=== PATIENT | female | born 1995 | race Hispanic/Latino ===

== ENCOUNTER 2020-12-10 14:55 | Emergency (ER) | payer BC ==
[2020-12-10 15:59] LABS: Urine Blood Negative (Negative); Urine Glucose Negative (Negative); Urine Protein Negative (Negative)
[2020-12-10 16:16] LABS: ALT/SGPT 20 U/L (12-78); AST/SGOT 14 U/L (15-37); Albumin 3.7 g/dL (3.4-5.0); Alkaline Phosphatase 72 U/L (45-117); BUN Blood Urea Nitrogen 15 mg/dL (7-18); Bicarbonate 24 mmol/L (21-32); Bilirubin Direct < 0.1 mg/dL (0-0.2); Bilirubin Total 0.2 mg/dL (0.2-1.0); Glucose Level 86 mg/dL (74-106); Lipase 112 U/L (73-393); Potassium 3.5 mmol/L (3.5-5.1); Protein, Total 7.3 g/dL (6.4-8.2); Sodium Level 138 mmol/L (136-145)
[2020-12-10] MEDS ORDERED: DICYCLOMINE HCL 10 MG CAP ONE (16:25)
[2020-12-10 17:41] LABS: Basophils % 0.4 % (0-1.3); Hematocrit 36.8 % (36.0-45.0); Lymphocytes % 36.4 % (15.3-44.8); MPV 8.7 fL (7.6-11.3); RBC Red Blood Cell Count 4.47 M/uL (3.86-4.86)
--- NOTE | 2020-12-10 18:09 | RAD REPORT ---
EXAM DESCRIPTION: CT - Abdomen Pelvis W Contrast - 12/10/2020 5:37 pm CLINICAL HISTORY: Abdominal pain COMPARISON: none. TECHNIQUE: Computed axial tomography of the abdomen pelvis was obtained. 100 cc Isovue-300 was admin istered intravenously. Oral contrast was not requested which limits evaluation of bowel and appendix. All CT scans are performed using dose optimization technique as appropriate and may include automated exposure control or mA/KV adjustment according to patient size. FINDINGS: The liver, spleen, pancreas, adrenal and kidneys appear unremarkable. There is no evidence of diverticulitis. No adnexal mass. Tiny umbilical hernia IMPRESSION: No acute abnormality is displayed.
--- NOTE | 2020-12-10 18:18 | EDPHYS ---
Physician Documentation [facility] Name: Albertina Love Age: 25 yrs Sex: Female : 1995 Arrival Date: 12/10/2020 Time: 14:57 Bed 23 Private MD: ED Physician Aftab Padilla HPI: 12/10 15:18 This 25 yrs old Female presents to ER via Ambulatory with complaints of Pelvic Pain, kb Back Pain, Abdominal Pain. 15:18 The patient presents with abdominal pain in the upper abdomen. Onset: The kb symptoms/episode began/occurred 2 day(s) ago. The symptoms do not radiate. Associated signs and symptoms: Pertinent positives: vomiting. The symptoms are described as constant, crampy. Modifying factors: The symptoms are alleviated by nothing, the symptoms are aggravated by nothing. Severity of pain: At its worst the pain was moderate in the emergency department the pain is unchanged. The patient has not experienced similar symptoms in the past. The patient has not recently seen a physician. Pt reports cough, abd pain, joint pain, sore throat, and bodyaches for 2 days. States she got dizzy on Thursday at a [employer] so someone gave her some fruit to eat, but she is concerned that it may have been contaminated with gluten. . 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 - Social history:: Smoking status: Patient denies any tobacco usage or history of. ROS: 15:20 Cardiovascular: Negative for chest pain, palpitations, and edema. kb 15:20 Constitutional: Positive for body aches, malaise. 15:20 ENT: Positive for sore throat. 15:20 Respiratory: Positive for cough, Negative for dyspnea on exertion, hemoptysis, orthopnea, pleurisy, shortness of breath, sputum production, wheezing. 15:20 Abdomen/GI: Positive for abdominal pain, vomiting, Negative for nausea, diarrhea. 15:20 All other systems are negative. Exam: 15:23 Constitutional: This is a well developed, well nourished patient who is awake, alert, kb and in no acute distress. Head/Face: Normocephalic, atraumatic. ENT: Moist Mucous membranes Respiratory: Respirations even and unlabored. No increased work of breathing, no retractions or nasal flaring. Skin: Warm, dry with normal turgor. Normal color. MS/ Extremity: Pulses equal, no cyanosis. Neurovascular intact. Full, normal range of motion. Neuro: Awake and alert, GCS 15, oriented to person, place, time, and situation. Moves all extremities. Normal gait. Psych: Awake, alert, with orientation to person, place and time. Behavior, mood, and affect are within normal limits. 15:23 Abdomen/GI: Inspection: abdomen appears normal, Bowel sounds: normal, in all quadrants, Palpation: soft, in all quadrants, mild abdominal tenderness, in the right upper quadrant, left upper quadrant and left lower quadrant. Vital Signs: 15:06 BP 125 / 74; Pulse 78; Resp 18 S; Temp 99.5(TE); Pulse Ox 99% on R/A; Weight 87.54 kg aa5 (R); Height 5 ft. 0 in. (152.40 cm) (R); 17:53 BP 128 / 80; Pulse 67; Resp 17; Pulse Ox 100% on R/A; oh 15:06 Body Mass Index 37.69 (87.54 kg, 152.40 cm) aa5 MDM: 15:09 Patient medically screened. kb 15:23 Data reviewed: vital signs, nurses notes. Data interpreted: Pulse oximetry: on room air kb is 99 %. Interpretation: normal. 18:11 Counseling: I had a detailed discussion with the patient and/or guardian regarding: the kb historical points, exam findings, and any diagnostic results supporting the discharge/admit diagnosis, lab results, radiology results, the need for outpatient follow up, a family practitioner, to return to the emergency department if symptoms worsen or persist or if there are any questions or concerns that arise at home. 12/10 15:18 Order name: Basic Metabolic Panel; Complete Time: 16:28 kb 12/10 15:18 Order name: CBC with Diff; Complete Time: 17:43 kb 12/10 15:18 Order name: Hepatic Function; Complete Time: 16:28 kb 12/10 15:18 Order name: Lipase; Complete Time: 16:28 kb 12/10 15:23 Order name: Strep kb 12/10 15:18 Order name: IV Saline Lock; Complete Time: 15:53 kb 12/10 15:18 Order name: Labs collected and sent; Complete Time: 15:53 kb 12/10 15:24 Order name: Group A Streptococcus Rapid Sc; Complete Time: 16:28 EDMS 12/10 15:58 Order name: Urine Dipstick-Ancillary; Complete Time: 16:00 EDMS 12/10 16:11 Order name: SARS-COV-2 RT PCR; Complete Time: 17:13 EDMS 12/10 16:22 Order name: Throat Culture EDOR 12/10 17:13 Order name: CT Abd/Pelvis - IV Contrast Only; Complete Time: 18:11 kb 12/10 15:18 Order name: Urine Dipstick-Ancillary (obtain specimen); Complete Time: 15:58 kb 12/10 15:18 Order name: Urine Test (obtain specimen); Complete Time: 15:58 kb Administered Medications: 16:04 Drug: Bentyl (dicyclomine) 20 mg Route: PO; oh Point of Care Testing: Urine : 15:58 hCG Reading: Negative; oh Disposition: 12/11 08:56 Co-signature as Attending Physician, Aftab Padilla MD I agree with the assessment and kdr plan of care. Disposition Summary: 12/10/20 18:18 Discharge Ordered Location: Home kb Condition: Stable kb Diagnosis - Abdominal pain, Generalized kb Followup: kb - With: Emergency Department - When: As needed - Reason: Worsening of condition Followup: kb - With: Private Physician - When: 2 - 3 days - Reason: Recheck today's complaints, Continuance of care, Re-evaluation by your physician Discharge Instructions: - Discharge Summary Sheet kb - Abdominal Pain, Adult, [id number] kb Forms: - Medication Reconciliation Form kb - Thank You Letter kb - Work release form kb - Antibiotic Education kb - Prescription Opioid Use kb Prescriptions: - dicyclomine 20 mg Oral Tablet - take 1 tablet by ORAL route 4 times per day As needed; 20 tablet; Refills: 0, kb Product Selection Permitted Signatures: Dispatcher [employer] [facility] Dianna Tomlin FNP-C FNP-Ckb Rittger, Kevin, MD MD kdr Calderon, Audri, RN RN aa Berenice Lopez RN RN oh Corrections: (The following items were deleted from the chart) 12/10 16:11 15:18 CORONAVIRUS+BRZ ordered. EDMS EDMS
--- NOTE | 2020-12-10 18:18 | ER ---
Nurse's Notes [facility] Name: Albertina Love Age: 25 yrs Sex: Female : 1995 Arrival Date: 12/10/2020 Time: 14:57 Bed 23 Private MD: Diagnosis: Abdominal pain, Generalized Presentation: 12/10 15:03 Chief complaint: Chief complaint: Patient states: back pain, generalized abd pain x 3 aa5 days ago. Pt also reports sore throat and nausea. 15:06 Coronavirus screen: sore throat. Ebola Screen: Patient negative for fever greater than aa5 or equal to 101.5 degrees Fahrenheit, and additional compatible Ebola Virus Disease symptoms. Initial Sepsis Screen: Does the patient meet any 2 criteria? No. Patient's initial sepsis screen is negative. Does the patient have a suspected source of infection? No. Patient's initial sepsis screen is negative. Risk Assessment: Do you want to hurt yourself or someone else? Patient reports no desire to harm self or others. Onset of symptoms was 2020. 15:06 Method Of Arrival: Ambulatory aa5 15:06 Acuity: MALCOM 3 aa5 Triage Assessment: 17:29 General: Appears uncomfortable, Behavior is cooperative, appropriate for age. 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 - Social history:: Smoking status: Patient denies any tobacco usage or history of. Screenin:28 Abuse screen: Denies threats or abuse. Nutritional screening: No deficits noted. oh Tuberculosis screening: No symptoms or risk factors identified. Fall Risk None identified. Assessment: 16:00 EENT: swollen nodules. oh 17:25 GI: Reports lower abdominal pain. Derm: Rash noted that is red, raised, urticaria, rash oh to bilal cheeks, denies hx of lupus, red rash notice to bilalteral arms. Musculoskeletal: Reports pain in pelvic area. Vital Signs: 15:06 BP 125 / 74; Pulse 78; Resp 18 S; Temp 99.5(TE); Pulse Ox 99% on R/A; Weight 87.54 kg aa5 (R); Height 5 ft. 0 in. (152.40 cm) (R); 17:53 BP 128 / 80; Pulse 67; Resp 17; Pulse Ox 100% on R/A; oh 15:06 Body Mass Index 37.69 (87.54 kg, 152.40 cm) aa5 ED Course: 14:57 Patient arrived in ED. as 15:03 Arm band placed on. aa5 15:08 Triage completed. aa5 15:09 Dianna Tomlin FNP-C [facility]. kb 15:09 Aftab Padilla MD is Attending Physician. kb 15:16 Berenice Lopez, RN is Primary Nurse. oh 15:50 Inserted saline lock: 20 gauge in left antecubital area, using aseptic technique. Blood oh collected. 15:52 Strep Sent. oh 16:59 Throat Culture Sent. oh 17:28 Bed in low position. Call light in reach. oh 17:32 Patient taken to ultrasound. via wheelchair. oh 17:37 CT Abd/Pelvis - IV Contrast Only In Process Unspecified. EDMS 18:53 IV discontinued, bleeding controlled, Pressure dressing applied. oh 18:53 No provider procedures requiring assistance completed. oh Administered Medications: 16:04 Drug: Bentyl (dicyclomine) 20 mg Route: PO; oh Point of Care Testing: Urine : 15:58 hCG Reading: Negative; oh Outcome: 18:18 Discharge ordered by MD. kb 18:53 Patient left the ED. iw 18:53 Discharged to home oh 18:53 Condition: stable 18:53 Discharge instructions given to patient. Signatures: Dispatcher [employer] [facility] Dianna Tomlin FNP-C FNP-Sheila Coffey as Olamide Matthews, RN RN Malina Britton RN RN aa Berenice Lopez, RN RN oh Corrections: (The following items were deleted from the chart) 15:08 15:03 Chief complaint: aa5 aa
[2020-12-10 19:00] VITALS: TEMP 99.5
[2020-12-10 19:02] VITALS: BP 128/80; O2SAT 100
== END 2020-12-10 18:53 | disposition home or self-care (01) ==
LOC: ER 14:55
DX: R10.84 Generalized abdominal pain (principal); Z20.822 Contact with and (suspected) exposure to COVID-19
CPT/HCPCS: 87070; 85025; 80048; 36415; 80076; 87081; 81003; 83690; 74177; 99284; U0003; Q9967

== ENCOUNTER 2023-10-12 16:42 | Emergency (ER) | payer OTHER ==
[2023-10-12 18:45] LABS: Absolute Basophils 0.1 K/uL (0-0.5); Absolute Eosinophils 0.2 K/uL (0-0.5); Absolute Lymphocytes (CBC) 2.6 K/uL (0.7-4.9); Absolute Monocytes 0.4 K/uL (0.1-1.3); Absolute Neutrophil 2.7 K/uL (1.8-8.0); Basophils % 0.9 % (0-1.3); Hematocrit 39.2 % (36.0-45.0); Hemoglobin 13.1 g/dL (12.0-15.0); Lymphocytes % 43.5 % (15.3-44.8); MCH 28.2 pg (27.0-35.0); MCHC 33.5 g/dL (32.0-36.0); MCV 84.1 fL (80-100); MPV 7.9 fL (7.6-11.3); Monocytes % 7.5 % (3.3-12.3); Neutrophils % 45.1 % (41.7-73.7); Nucleated Red Blood Cells % 0.3 % (0-0); Platelets 252 thou/uL (152-406); RBC Red Blood Cell Count 4.66 M/uL (3.86-4.86); Red Cell Distribution Width 13.7 % (12.1-15.2)
[2023-10-12 19:00] LABS: SARS-CoV-2 Antigen CONTROL BLUE LINE VIS/BG OK; SARS-CoV-2 Antigen Rapid Res Positive (Negative)
[2023-10-12 19:03] LABS: Specific Gravity 1.014 (1.005-1.030)
[2023-10-12 19:04] LABS: Specific Gravity 1.014 (1.005-1.030); Sqamous Epithelial <5 /HPF (None Seen); Urine Bacteria None Seen /HPF (<20); Urine Bilirubin NEGATIVE (Negative); Urine Blood 2+ (Negative); Urine Clarity Turbid (Clear); Urine Color Light-Yellow (Yellow); Urine Culture Reflex Order NOT NEEDED; Urine Glucose NEGATIVE (Negative); Urine Ketones NEGATIVE (Negative); Urine Microscopic Reflex YN ORDER UMIC; Urine Mucus Slight /HPF (None Seen); Urine Nitrite NEGATIVE (Negative); Urine Protein NEGATIVE (Negative); Urine RBC <5 /HPF (None Seen); Urine Urobilinogen Normal (Normal); Urine WBC <5 /HPF (<5)
[2023-10-12 19:11] LABS: Monoscreen POS (NEG)
[2023-10-12 19:13] LABS: Albumin 3.9 g/dL (3.4-5.0); Anion Gap 8.6 mEq/L (5.0-15.0); Bilirubin Total 0.3 mg/dL (0.2-1.0); Globulin 3.9 g/dL (2.3-3.5); Potassium 3.6 mEq/L (3.5-5.1); Protein, Total 7.8 g/dL (6.4-8.2)
--- NOTE | 2023-10-12 19:41 | RAD REPORT ---
EXAM DESCRIPTION: CT - Abdomen Pelvis W Contrast - 10/12/2023 7:30 pm CLINICAL HISTORY: Abdominal pain COMPARISON: 2020 TECHNIQUE: Computed axial tomography of the abdomen pelvis was obtained. 100 cc Isovue-300 was admin istered intravenously. Oral contrast was not requested which limits evaluation of bowel and appendix All CT scans are performed using dose optimization technique as appropriate and may include automated exposure control or mA/KV adjustment according to patient size. FINDINGS: The liver, spleen, pancreas, adrenal and kidneys appear unremarkable. There is no evidence of diverticulitis. No adnexal mass IMPRESSION: No acute abnormality is displayed.
--- NOTE | 2023-10-12 19:50 | EDPHYS ---
Physician Documentation [facility] Name: Albertina Love Age: 28 yrs Sex: Female : 1995 Arrival Date: 10/12/2023 Time: 16:42 Bed 12 Private MD: ED Physician Sky Campos HPI: 10/11 17:43 This 28 yrs old Female presents to ER via Ambulatory with complaints of sb4 Abdominal Pain, Diarrhea. 17:43 intermittent abdominal pain, diarrhea, and low grade fever x 9 days. states the pain is sb4 in the lower abdomen and also in her RUQ. endorses nausea, no vomiting. states she developed FLS 2 days ago- sore throat, headache, congestion. she has been taking Tylenol and Motrin for the fever. denies any chest pain or shortness of breath. states the diarrhea is improving. 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 - Infectious Disease History:: Denies. - Social history:: Smoking status: Patient denies any tobacco usage or history of. ROS: 17:54 Constitutional: Positive for fever, sb4 17:54 ENT: Positive for sinus congestion, sore throat, 17:54 Abdomen/GI: Positive for abdominal pain, nausea, diarrhea, 17:54 All other systems are negative, Exam: 17:54 Constitutional: This is a well developed, well nourished patient who is awake, alert, sb4 and in no acute distress. Head/Face: Normocephalic, atraumatic. Eyes: Extra-ocular motions intact. Periorbital areas with no swelling, redness, or edema. ENT: Mucous membranes moist. Cardiovascular: Regular rate and rhythm with a normal S1 and S2. Respiratory: Lungs have equal breath sounds bilaterally, clear to auscultation and percussion. No rales, rhonchi or wheezes noted. No increased work of breathing, no retractions or nasal flaring. Abdomen/GI: Soft, non-tender, no distension. Skin: Warm, dry with normal turgor. Normal color with no rashes, no lesions, and no evidence of cellulitis. MS/ Extremity: Pulses equal, no cyanosis. Neurovascular intact. Full, normal range of motion. Neuro: Awake and alert, GCS 15, oriented to person, place, time, and situation. Motor strength 5/5 in all extremities. Sensory grossly intact. Vital Signs: 17:27 BP 182 / 94; Pulse 87; Resp 18; Temp 99.5(O); Pulse Ox 100% on R/A; Weight 102.06 kg; cm10 Height 5 ft. 0 in. ; Pain 3/10; 20:04 Resp 16; Temp 98(TE); Pulse Ox 99% on R/A; kl 17:27 Body Mass Index 43.94 (102.06 kg, 152.4 cm) cm10 17:27 Pain Scale: Adult cm10 MDM: 17:09 Patient medically screened. sb4 19:50 Data reviewed: vital signs, nurses notes, lab test result(s), radiologic studies, and sb4 as a result, I will discharge patient. Counseling: I had a detailed discussion with the patient and/or guardian regarding the historical points, exam findings, and any diagnostic results supporting the discharge/admit diagnosis, lab results, radiology results, the need for outpatient follow up, for definitive care, to return to the emergency department if symptoms worsen or persist or if there are any questions or concerns that arise at home. 08 17:39 Order name: CBC with Diff; Complete Time: 18:48 sb4 10/11 17:39 Order name: CMP; Complete Time: 19:14 sb4 10/11 17:39 Order name: Lipase; Complete Time: 19:14 sb4 10/11 17:39 Order name: Test, Urine; Complete Time: 19:04 sb4 10/11 17:39 Order name: Urinalysis w/ reflexes; Complete Time: 19:05 sb4 10/11 17:39 Order name: [place] Screen Profile; Complete Time: 19:12 sb4 10/11 17:39 Order name: Strep; Complete Time: 19:05 sb4 10/11 17:39 Order name: SARS RAPID; Complete Time: 19:01 sb4 10/11 19:06 Order name: Throat Culture EDMS 10/11 17:39 Order name: CT Abd/Pelvis - IV Contrast Only; Complete Time: 19:43 sb4 08/12 17:39 Order name: IV Saline Lock; Complete Time: 18:38 sb4 10/11 17:39 Order name: Labs collected and sent; Complete Time: 18:38 sb4 Administered Medications: No medications were administered Disposition: 19:51 Chart complete. sb4 20:28 Co-signature as Attending Physician, Sky Campos MD I reviewed the patient's care rt provided by the Advanced Practice Provider and agree with the diagnosis and treatment plan. Disposition Summary: 10/12/23 19:50 Discharge Ordered Notes: Location: Home sb4 Problem: an ongoing problem sb4 Symptoms: have improved sb4 Condition: Stable sb4 Diagnosis - SARS-associated coronavirus as the cause of diseases classified elsewhere sb4 - Infectious mononucleosis, unspecified without complication sb4 Followup: sb4 - With: Private Physician - When: As needed - Reason: Recheck today's complaints, Re-evaluation by your physician Discharge Instructions: - Discharge Summary Sheet sb4 - Infectious Mononucleosis sb4 - 10 Things You Can Do to Manage Your COVID-19 Symptoms at Home - [facility] (09/14/2020) sb4 Forms: - Work release form sb4 - Patient Portal Instructions sb4 - Leadership Thank You Letter sb4 Signatures: Dispatcher [employer] EDChristal Bro PA-C PATeodoro sb4 Sky Campos MD MD rt Donna Chambers RN RN cm10 Corrections: (The following items were deleted from the chart) 17:39 17:39 CBC+H.LAB.BRZ ordered. EDMS EDMS 17:39 17:39 COMPREHENSIVE METABOLIC PANEL+C.LAB.BRZ ordered. EDMS EDMS 17:39 17:39 LIPASE+C.LAB.BRZ ordered. EDMS EDMS 17:39 17:39 Test, Urine+UC.LAB.BRZ ordered. EDMS EDMS 17:39 17:39 Urinalysis+U.LAB.BRZ ordered. EDMS EDMS 17:39 17:39 MONO SCREEN PROFILE+I.LAB.BRZ ordered. EDMS EDMS 17:39 17:39 Group A Streptococcus Rapid Sc+BA.LAB.BRZ ordered. EDMS EDMS 17:39 17:39 SARS-COV-2 Antigen Rapid+I.LAB.BRZ ordered. EDMS EDMS 17:39 17:39 Abdomen Pelvis W Con+CT.RAD.BRZ ordered. EDMS EDMS
--- NOTE | 2023-10-12 19:50 | ER ---
Nurse's Notes [facility] Name: Albertina Love Age: 28 yrs Sex: Female : 1995 Arrival Date: 10/12/2023 Time: 16:42 Bed 12 Private MD: Diagnosis: SARS-associated coronavirus as the cause of diseases classified elsewhere;Infectious mononucleosis, unspecified without complication Presentation: 10/11 17:27 Chief complaint: Patient states: Diarrhea, lower abdominal pain, low grade fever, and cm10 RUQ abdominal pain X9 days. Pt reports that on Thursday she developed sore throat and cough. Coronavirus screen: Client denies travel out of the [place] in the last 14 days. Ebola Screen: Patient denies travel to an Ebola-affected area in the 21 days before illness onset. No symptoms or risks identified at this time. Initial Sepsis Screen: Does the patient meet any 2 criteria? No. Patient's initial sepsis screen is negative. Does the patient have a suspected source of infection? No. Patient's initial sepsis screen is negative. Risk Assessment: Do you want to hurt yourself or someone else? Patient reports no desire to harm self or others. Onset of symptoms was October 12, 2023. 17:27 Method Of Arrival: Ambulatory cm10 17:27 Acuity: MALCOM 3 cm10 Triage Assessment: 17:31 General: Appears in no apparent distress. uncomfortable, Behavior is calm, cooperative. cm10 Neuro: No deficits noted. Level of Consciousness is awake, alert, obeys commands, Oriented to person, place, time, situation, Appropriate for age. Respiratory: No deficits noted. Airway is patent Respiratory effort is even, unlabored, Respiratory pattern is regular, symmetrical. 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 - Infectious Disease History:: Denies. - Social history:: Smoking status: Patient denies any tobacco usage or history of. Screenin:05 [facility] ED Fall Risk Assessment (Adult) History of falling in the last 3 months, kl including since admission No falls in past 3 months (0 pts) Confusion or Disorientation No (0 pts) Intoxicated or Sedated No (0 pts) Impaired Gait No (0 pts) Mobility Assist Device Used No (0 pt) Altered Elimination No (0 pt) Score/Fall Risk Level 0 - 2 = Low Risk Oriented to surroundings, Maintained a safe environment. Abuse screen: Denies threats or abuse. Nutritional screening: No deficits noted. Tuberculosis screening: No symptoms or risk factors identified. Assessment: 20:03 General: Appears in no apparent distress. comfortable, Behavior is calm, cooperative. kl Pain: Complains of pain in generalized body aches Pain currently is 5 out of 10 on a pain scale. Neuro: No deficits noted. Cardiovascular: No deficits noted. Respiratory: No deficits noted. Airway is patent Trachea midline Respiratory effort is even, unlabored, Respiratory pattern is regular, symmetrical. GI: Bowel sounds present X 4 quads. Abd is soft and non tender. Vital Signs: 17:27 BP 182 / 94; Pulse 87; Resp 18; Temp 99.5(O); Pulse Ox 100% on R/A; Weight 102.06 kg; cm10 Height 5 ft. 0 in. ; Pain 3/10; 20:04 Resp 16; Temp 98(TE); Pulse Ox 99% on R/A; kl 17:27 Body Mass Index 43.94 (102.06 kg, 152.4 cm) cm10 17:27 Pain Scale: Adult cm10 ED Course: 16:45 Patient arrived in ED. mg5 17:03 Christal Tapia PA-C is [facility]. sb4 17:03 Sky Campos MD is Attending Physician. sb4 17:30 Triage completed. cm10 17:31 Arm band placed on Patient placed in waiting room. cm10 18:30 Inserted saline lock: 20 gauge in right antecubital area, using aseptic technique. nj1 Blood collected. Flushed with 10 mL NS. 18:38 Strep Sent. nj1 18:38 SARS RAPID Sent. nj1 18:38 [place] Screen Profile Sent. nj1 18:38 CBC with Diff Sent. nj1 18:38 CMP Sent. nj1 18:39 Lipase Sent. nj1 19:32 CT Abd/Pelvis - IV Contrast Only In Process Unspecified. EDMS 20:06 No provider procedures requiring assistance completed. IV discontinued, intact, kl bleeding controlled, No redness/swelling at site. Pressure dressing applied. 20:07 Patient has correct armband on for positive identification. Provided Education on: kl isolation. Administered Medications: No medications were administered Medication: 20:05 VIS not applicable for this client. elizabeth Outcome: 19:50 Discharge ordered by . lisa 20:06 Discharged to home ambulatory, elizabeth 20:06 Condition: stable 20:06 Discharge instructions given to patient, Instructed on discharge instructions, follow up and referral plans. Demonstrated understanding of instructions, follow-up care, 20:07 Patient left the ED. elizabeth Signatures: Dispatcher [employer] EDTracey Birch RN RN Christal Fay, PA-C PA-C sb4 Nella Deluna RN RN nj1 Donna Chambers RN RN cm10 Taya Mead mg5
[2023-10-12 20:32] VITALS: BP 182/94
[2023-10-12 20:33] VITALS: TEMP 98; O2SAT 99
== END 2023-10-12 20:07 | disposition home or self-care (01) ==
LOC: ER 16:42
DX: U07.1 COVID-19 (principal); B27.90 Infectious mononucleosis, unspecified without complication
CPT/HCPCS: 87070; 85025; 81001; 36415; 86308; 81025; 87081; 83690; 80053; 74177; 99283; 87811; Q9967